=== PATIENT | female | born 1955 | race Caucasian/White ===

== ENCOUNTER 2017-05-02 20:15 | Emergency (ER) | payer SELFPAY ==
[~2017-05-02] VITALS: Ht 160 cm; Wt 48.0 kg
[2017-05-02 20:16] VITALS: BP 114/68; PULSE 106; RESP 18; TEMP 100.4; O2SAT 96
[2017-05-02 23:49] VITALS: TEMP 98.1; O2SAT 95
--- NOTE | 2017-05-02 23:51 | PD ---
HPI Chief Complaint: Complaint Time Seen by Provider: 23:47 Travel History International Travel<30 days: No Contact w/Intl Traveler<30days: No Traveled to known affect area: No History of Present Illness HPI 61 year-old female presents to the emergency department for 3 days of cough congestion and green nasal drainage cough productive of yellow sputum fever chills and decreased urine output. Patient is use some [id number] Azo without relief of symptoms. Patient denies any chest pain abdominal pain has noted some flank pain denies any diarrhea. No epistaxis. No injury or fall. Does smoke cigarettes [id number] tobacco use. PFS Past Medical History Narrative Medical Cervical cancer shoulder surgery tobacco use; nursing notes reviewed Cancer: Yes (CERVICAL) Tetanus Vaccination: < 5 Years Influenza Vaccination: No ?: Not Past Surgical History Hysterectomy: Yes (COLD CONE FOR CERVICAL CANCER) Social History Alcohol Use: Yes (OCC) Tobacco Use: Yes (1PPD) Substance Use: No Allergies-Medications (Allergen,Severity, Reaction): Coded Allergies: Codeine (Verified Adverse Reaction, Severe, Numbness, 05/02/17) Narrative Medication Azo [id number] Review of Systems Except as stated in HPI: all other systems reviewed are Neg Physical Exam Narrative GENERAL: Well-developed well-nourished female in no acute distress no respiratory distress SKIN: Warm and dry. HEAD: Normocephalic. EYES: No scleral icterus. No injection or drainage. NECK: Supple, trachea midline. No JVD or lymphadenopathy. CARDIOVASCULAR: Regular rate and rhythm without murmurs, gallops, or rubs. RESPIRATORY: Breath sounds equal bilaterally. No accessory muscle use. GASTROINTESTINAL: Abdomen soft, non-tender, nondistended. MUSCULOSKELETAL: No cyanosis, or edema. BACK: Nontender without obvious deformity. No CVA tenderness. Data Data Last Documented VS Vital Signs Date Time Temp Pulse Resp B/P Pulse Ox O2 Delivery O2 Flow Rate FiO2 05/02/17 23:49 95 Room Air 05/02/17 23:49 98.1 05/02/17 20:16 106 18 114/68 Orders Complete Blood Count With Diff (05/02/17 23:47) Basic Metabolic Panel (Bmp) (05/02/17 23:47) Chest, Single Ap (05/02/17 23:47) Iv Access Insert/Monitor (05/02/17 23:47) Oximetry (05/02/17 23:47) Acetaminophen (Tylenol) (05/03/17 00:00) Sodium Chloride 0.9% Flush (Ns Flush) (05/03/17 00:00) Blood Culture (05/02/17 23:47) Lactic Acid (05/02/17 23:47) Sodium Chlor 0.9% 1000 Ml Inj (Ns 1000 M (05/03/17 00:00) Ceftriaxone Inj (Rocephin Inj) (05/03/17 00:00) Urinalysis - C+S If Indicated (05/03/17 00:03) Urine Culture (05/03/17 00:00) Potassium Chloride (Kcl) (05/03/17 02:45) Azithromycin (Zithromax) (05/03/17 02:45) Labs Laboratory Tests Test 05/02/17 05/03/17 23:45 00:00 White Blood Count 16.3 TH/MM3 Red Blood Count 4.31 MIL/MM3 Hemoglobin 13.4 GM/DL Hematocrit 40.2 % Mean Corpuscular Volume 93.2 FL Mean Corpuscular Hemoglobin 31.1 PG Mean Corpuscular Hemoglobin 33.4 % Concent Red Cell Distribution Width 13.8 % Platelet Count 273 TH/MM3 Mean Platelet Volume 8.4 FL Neutrophils (%) (Auto) 74.3 % Lymphocytes (%) (Auto) 14.5 % Monocytes (%) (Auto) 10.6 % Eosinophils (%) (Auto) 0.1 % Basophils (%) (Auto) 0.5 % Neutrophils # (Auto) 12.1 TH/MM3 Lymphocytes # (Auto) 2.4 TH/MM3 Monocytes # (Auto) 1.7 TH/MM3 Eosinophils # (Auto) 0.0 TH/MM3 Basophils # (Auto) 0.1 TH/MM3 CBC Comment DIFF FINAL Differential Comment Sodium Level 132 MEQ/L Potassium Level 3.3 MEQ/L Chloride Level 97 MEQ/L Carbon Dioxide Level 26.4 MEQ/L Anion Gap 9 MEQ/L Blood Urea Nitrogen 13 MG/DL Creatinine 0.96 MG/DL Estimat Glomerular Filtration 59 ML/MIN Rate Random Glucose 84 MG/DL Calcium Level 8.6 MG/DL Urine Color DARK-BROWN Urine Turbidity CLEAR Urine pH 5.5 Urine Specific [place] 1.014 Urine Protein TRACE mg/dL Urine Glucose (UA) NEG mg/dL Urine Ketones NEG mg/dL Urine Occult Blood NEG Urine Nitrite POS Urine Bilirubin NEG Urine Urobilinogen 4.0 MG/DL Urine Leukocyte Esterase NEG Urine RBC 2 /hpf Urine WBC 11 /hpf Urine Squamous Epithelial 4 /hpf Cells Urine Bacteria MOD /hpf Urine Hyaline Casts 9 /lpf Microscopic Urinalysis Comment CULTURE INDICATED Lactic Acid Level 1.3 mmol/L MDM Medical Decision Making Medical Screen Exam Complete: Yes Emergency Medical Condition: Yes Medical Record Reviewed: Yes Interpretation(s) CBC & BMP Diagram 05/02/17 23:45 Vital Signs Date Time Temp Pulse Resp B/P Pulse Ox O2 Delivery O2 Flow Rate FiO2 05/02/17 23:49 95 Room Air 05/02/17 23:49 98.1 05/02/17 20:16 100.4 106 18 114/68 96 Room Air Differential Diagnosis Upper respiratory infection, viral syndrome, pneumonia, bronchitis, UTI, sepsis Narrative Course IV access obtained specimens collected and sent for resulting patient administered 1 L normal saline and Rocephin 1 g IV piggyback Sepsis Criteria SIRS Criteria (2 or more): Temp > 100.9 or < 96.8, Heart rate over 90 Diagnosis Primary Impression: Bronchitis Additional Impression: UTI (urinary tract infection) Qualified Code: N30.00 - Acute cystitis without hematuria Referrals: Primary Care Physician call for appointment Patient Instructions: General Instructions Additional Instructions: Complete course of antibiotic as prescribed Use inhaler as needed for shortness of breath or wheezing Increase fluid hydration Follow-up with primary care provider Discontinue tobacco use Use acetaminophen or ibuprofen per package instructions as needed for fever 100.4F or greater Return to the emergency department for any concerns or change condition Med/Other Pt SpecificInfo: Prescription(s) given Scripts Albuterol 8.5 GM Inh (Proair Hfa 8.5 GM Inh)90 Mcg/Act Aer2 Puff INH Q4-6H PRN ( SHORTNESS OF BREATH) #1 INHALER Ref 0 108 mcg/actuation Prov:Emily Reina MD 05/03/17 Ciprofloxacin (Cipro)500 Mg Usp259 Mg PO BID 7 Days Ref 0 Prov:Emily Reina MD 05/03/17 Disposition: DISCHARGE HOME Condition: Stable Emily Reina MD May 02, 2017 23:51
[2017-05-03] MEDS ORDERED: SODIUM CHLOR 0.9% 1000 ML INJ 1,000 ML IV ONE
[2017-05-03] MEDS ORDERED: ACETAMINOPHEN 325 MG TAB PO ONE
[2017-05-03] MEDS ORDERED: cefTRIAXone INJ 1,000 MG in SODIUM CHLORIDE 0.9% INJ 100 ML IV ONE ×2
[2017-05-03] MEDS ORDERED: SODIUM CHLORIDE 0.9% FLUSH 10 ML FLUSH IVF PRN
--- NOTE | 2017-05-03 00:14 | RADRPT ---
EXAM DATE/TIME: 05/02/2017 23:59 [facility] COMPARISON: No previous studies available for comparison. INDICATIONS : Pt coughing u green phlegm for 3 days with a fever. MEDICAL HISTORY : Cervical ancer SURGICAL HISTORY : Left collarbone ENCOUNTER: Initial ACUITY: 3 days PAIN SCORE: 7/10 LOCATION: Bilateral chest FINDINGS: A single view of the chest demonstrates the lungs to be symmetrically aerated without evidence of mas s, infiltrate or effusion. The cardiomediastinal contours are unremarkable. Osseous structures are intact. The left acromioclavicular joint has been fused CONCLUSION: Normal examination. Yovani Minor MD on May 03, 2017 at 0:13 Board Certified Radiologist. This report was verified electronically.
[2017-05-03 00:43] LABS: AUTOMATED NEUTROPHIL # 12.1 TH/MM3 (1.8-7.7); BASOPHIL # 0.1 TH/MM3 (0-0.2); BASOPHIL % 0.5 % (0.0-2.0); EOSINOPHIL % 0.1 % (0.0-4.0); HEMATOCRIT 40.2 % (35.0-46.0); HEMO FLAGS DIFF FINAL; LYMPH % 14.5 % (9.0-44.0); LYMPHOCYTE # 2.4 TH/MM3 (1.0-4.8); MEAN CELL VOLUME 93.2 FL (80.0-100.0); MEAN CORPUSCULAR HEMOGLOBIN 31.1 PG (27.0-34.0); MEAN CORPUSCULAR HGB CONC 33.4 % (32.0-36.0); MONO % 10.6 % (0.0-8.0); NEUT % 74.3 % (16.0-70.0); PLATELET COUNT 273 TH/MM3 (150-450); RED BLOOD COUNT 4.31 MIL/MM3 (4.00-5.30); RED CELL DISTRIBUTION WIDTH 13.8 % (11.6-17.2); WHITE BLOOD COUNT 16.3 TH/MM3 (4.0-11.0)
[2017-05-03 00:50] LABS: BACTERIA, URINE MOD /hpf; BLOOD, URINE NEG (NEG); COMMENT (UR) CULTURE INDICATED; CULTURE IF INDICATED CULTURE INDICATED; GLUCOSE,URINE NEG (NEG); HYALINE CAST, URINE 9 /lpf (RARE); KETONE, URINE NEG (NEG); PH, URINE 5.5 (5.0-8.5); SQUAMOUS EPITHELIAL CELL URINE 4 /hpf (0-5); URINE COLOR DARK-BROWN (YELLW/STRAW)
[2017-05-03 00:52] LABS: NITRITE,URINE POS (NEG)
[2017-05-03 01:04] LABS: BICARBONATE 26.4 MEQ/L (21.0-32.0)
[2017-05-03 01:09] LABS: POTASSIUM 3.3 MEQ/L (3.5-5.1)
[2017-05-03] MEDS ORDERED: ALBUAER3 INH (02:38)
[2017-05-03] MEDS ORDERED: CIPR-9 PO (02:38)
[2017-05-03] MEDS ORDERED: POTASSIUM CHLORIDE 20 MEQ CONTROLLED RELEASE TAB PO ONE (02:45)
[2017-05-03] MEDS ORDERED: AZITHROMYCIN 250 MG TAB PO ONE (02:45)
== END 2017-05-03 03:16 | disposition home or self-care (01) ==
LOC: NEPC 20:15
DX: J40 Bronchitis, not specified as acute or chronic (principal); N30.00 Acute cystitis without hematuria; R50.9 Fever, unspecified; B96.20 Unspecified Escherichia coli [E. coli] as the cause of diseases classified elsewhere; F17.200 Nicotine dependence, unspecified, uncomplicated; Z85.41 Personal history of malignant neoplasm of cervix uteri
CPT/HCPCS: 71010; 80048; 81001; 83605; 85025; 87040; 87077; 87086; 87186; 96374; 99284; J0696; J7030

== ENCOUNTER 2017-07-23 13:30 | Emergency (ER) | payer SELFPAY ==
[~2017-07-23] VITALS: Ht 160 cm; Wt 47.5 kg
[~2017-07-23 13:30] MED LIST: ALBUAER3 INH; CIPR-9 PO
[2017-07-23 13:31] VITALS: BP 137/65; PULSE 92; RESP 16; TEMP 99; O2SAT 99
--- NOTE | 2017-07-23 13:59 | PD ---
HPI Chief Complaint: ENT Complaint Time Seen by Provider: 13:54 Travel History International Travel<30 days: No Contact w/Intl Traveler<30days: No Traveled to known affect area: No History of Present Illness HPI Patient comes in complaining of right ear pain that began yesterday. Patient's pain is throbbing like in nature. Denies anything making it better or worse. Denies any radiation of the pain. She has not tried anything for this prior to coming to the emergency department. Denies any fevers, neck pain, sore throat, headache, change in vision, chest pain, or shortness of breath. PFSH Past Medical History Cancer: Yes (CERVICAL) Cardiovascular Problems: Yes (PROLAPSED HEART VALVE) Past Surgical History Hysterectomy: Yes (COLD CONE FOR CERVICAL CANCER) Social History Alcohol Use: Yes (OCC) Tobacco Use: Yes (1PPD) Substance Use: No Allergies-Medications (Allergen,Severity, Reaction): Coded Allergies: codeine (Verified Adverse Reaction, Severe, Numbness, 07/23/17) Reported Meds & Prescriptions Reported Meds & Active Scripts Active Amoxicillin 875 Mg Tab 875 Mg PO BID 10 Days Proair Hfa 8.5 GM Inh (Albuterol Sulfate) 90 Mcg/Act Aer 2 Puff INH Q4-6H PRN 108 mcg/actuation Cipro (Ciprofloxacin HCl) 500 Mg Tab 500 Mg PO BID 7 Days Review of Systems Except as stated in HPI: all other systems reviewed are Neg Physical Exam Narrative GENERAL: Well-developed, well nourished, in no acute distress, and non-ill appearing. SKIN: Focused skin assessment warm and dry. HEAD: Atraumatic. Normocephalic. EYES: Pupils equal and round. EOMI. No scleral icterus. No injection or drainage. ENT: No nasal bleeding or discharge. Mucous membranes pink and moist. Left tympanic membrane pearly crisostomo. Right tympanic membrane obscured by cerumen. Patient reports tenderness to palpation of tragus. NECK: Trachea midline. Supple. No nuclear rigidity. RESPIRATORY: No accessory muscle use. No respiratory distress. MUSCULOSKELETAL: No obvious deformities. No clubbing. No cyanosis. No edema. Full range of motion. NEUROLOGICAL: Awake and alert. No obvious cranial nerve deficits. Motor grossly within normal limits. Normal speech. PSYCHIATRIC: Appropriate mood and affect; insight and judgment normal. Data Data Last Documented VS Vital Signs Date Time Temp Pulse Resp B/P (MAP) Pulse Ox O2 Delivery O2 Flow Rate FiO2 07/23/17 14:33 07/23/17 13:31 99.0 92 16 99 Orders Orders Ear Irrigation (07/23/17 13:57) MDM Medical Decision Making Medical Screen Exam Complete: Yes Emergency Medical Condition: Yes Differential Diagnosis Otitis media, otitis externa, otalgia, cerumen impaction, other Narrative Course On reexam status post irrigation. Right tympanic membrane is noted to be erythematous with multiple air bubbles noted. Auditory canal is nonerythematous and without edema. Patient looks great, non-ill appearing. The patient is tolerating fluids and is well hydrated. Appears simple otitis media. No clinical evidence by history or evaluation to suspect meningitis and/or sepsis, nor malignant OE or mastoiditis. I discussed with the patient, diagnosis, plan of care and to follow up with the patients primary physician within the next week. The patient was instructed to return if worsens in anyway, especially if increased pain, persistent fever, worsening headache neck pain or as needed. The patient agreed with plan. Patient in no obvious distress upon re-evaluation. Patient was asked if they wanted to speak to my attending, which the patient did not wish to do at this time. Any questions/concerns in reference to patient diagnosis/condition discussed and clarified prior to patient's discharge. Reinforced sheer importance of close follow up with patient's primary physician or primary care clinic. Instructed patient to return to ED immediately, if symptoms return/ worsen. Pt showed understanding of above instructions. Further instructions and recommendations were detailed in discharge paperwork. Pt ambulated without difficulty out of ED at discharge. Diagnosis Primary Impression: Otitis media Qualified Codes: H66.90 - Otitis media, unspecified, unspecified ear Patient Instructions: Ear Infection (DC), General Instructions Additional Instructions: Follow-up with your primary care physician or ENT next week for reevaluation. Take all medication as prescribed. Use [id number] Tylenol and/or ibuprofen as needed for pain and/or fevers. Follow instructions on the packaging. Return to the emergency department if symptoms get worse. Med/Other Pt SpecificInfo: Prescription(s) given Scripts Amoxicillin (Amoxicillin) 875 Mg Tab 875 MG PO BID for Infection for 10 Days, #20 TAB 0 Refills Prov: Cleo Condon MD 07/23/17 Disposition: 01 DISCHARGE HOME Condition: Stable Yandel Connors Jul 23, 2017 13:59
[2017-07-23] MEDS ORDERED: AMOX875T PO (14:20)
== END 2017-07-23 14:39 | disposition home or self-care (01) ==
LOC: NEPK 13:30
DX: H66.91 Otitis media, unspecified, right ear (principal); F17.200 Nicotine dependence, unspecified, uncomplicated; Z79.899 Other long term (current) drug therapy
CPT/HCPCS: 99283